=== PATIENT | male | born 1990 | race Caucasian/White ===

== ENCOUNTER 2017-10-29 17:24 | Emergency (ER) | payer MEDICAID ==
[~2017-10-29] VITALS: Ht 181.6 cm; Wt 87.2 kg
[2017-10-29 17:30] VITALS: BP 135/91
[2017-10-29] MEDS ORDERED: OXYcodone/APAP 5/325MG TABLET PO ONE (19:30)
[2017-10-29] MEDS ORDERED: OXYcodone/APAP 5/325MG TABLET ONE (19:51)
== END 2017-10-29 20:10 | disposition home or self-care (01) ==
LOC: ED 19:40
DX: S82.124A Nondisplaced fracture of lateral condyle of right tibia, initial encounter for closed fracture (principal); X58.XXXA Exposure to other specified factors, initial encounter; Y93.72 Activity, wrestling; Y99.8 Other external cause status; Y92.89 Other specified places as the place of occurrence of the external cause
CPT/HCPCS: 29505; 99284